=== PATIENT | female | born 1965 | race Caucasian/White ===

== ENCOUNTER 2016-11-28 13:40 | Inpatient (IN) | payer BC ==
[~2016-11-28] VITALS: Ht 165.1 cm; Wt 89.0 kg
[2016-11-28 14:30] LABS: HEMATOCRIT 31.4 % (36.0-46.0); MCH 22.2 PG (29.0-34.0); MCHC 29.9 G/DL (30.0-36.0); MCV 74.2 FL (83-99); MEAN PLAT.VOLUME 10.4 uM^3 (9.5-12.4); PLATELET COUNT 304 K/uL (156-360); RBC DIS.WIDTH-CV 15.6 % (11.8-14.6); RBC DIS.WIDTH-SD 41.8 % (39-53); RED BLOOD COUNT 4.23 M/uL (3.80-5.20); WHITE BLOOD COUNT 5.4 K/uL (4.1-10.2)
[2016-11-28 14:35] LABS: CHLORIDE 105 mEq/L (99-109); POTASSIUM 4.7 mEq/L (3.7-5.4); SODIUM 137 mEq/L (136-147)
[2016-11-28 14:37] LABS: GLUCOSE 81 mg/dL (70-99)
[2016-11-28 14:39] LABS: ANION GAP 8 MEQ/L (2-14)
[2016-11-28 14:41] LABS: GFR ESTIMATE (CALCULATED) > 59 mL/min/
[2016-11-28 14:42] LABS: UREA NITROGEN (BUN) 9 mg/dL (9-23)
[2016-11-28] MEDS ORDERED: LEXAPRO10 MG PO (16:06)
[2016-11-28] MEDS ORDERED: FLEXERIL10 MG PO (16:06)
[2016-11-28] MEDS ORDERED: XANAX0.25 MG PO (16:07)
[2016-11-28] MEDS ORDERED: DAILY VITE1 EAC1 PO (16:08)
[2016-11-28] MEDS ORDERED: CYANOCOBAL1000 MCG/2 IM (16:08)
[2016-11-28] MEDS ORDERED: ADVAIR 250/501 DISK IH (16:09)
[2016-11-28] MEDS ORDERED: VITAMIN D2000 UNI1 PO (16:09)
[2016-11-28] MEDS ORDERED: PROAIR HFA8.5 GM IH (16:09)
[2016-11-28 20:01] VITALS: BP 142/78
[2016-11-28 22:29] LABS: ADD MIUA? YES; BILIRUBIN NEGATIVE; BLOOD NEGATIVE; COLOR STRAW ((YELLOW)); GLUCOSE (STRIP) >=500; KETONES NEGATIVE; LEUKOCYTES SMALL; NITRITE NEGATIVE; PROTEIN (STRIP) NEGATIVE; SPECIFIC GRAVITY 1.009 (1.000-1.030); UROBILINOGEN 0.2 MG/DL (0.2-1.0)
[2016-11-28 22:33] LABS: BACTERIA NONE SEEN /HPF; EPITHELIAL CELLS RARE /HPF; MUCUS TRACE /LPF; RED BLOOD CELLS 0-5 /HPF (0-5); UCUL ADDED? NO; WHITE BLOOD CELLS 0-5 /HPF (0-5)
[2016-11-28 23:43] VITALS: BP 138/70
[2016-11-29 03:38] VITALS: BP 133/71
[2016-11-29 06:17] LABS: EOSINOPHIL (%) 0 % (0-5); HEMATOCRIT 30.4 % (36.0-46.0); IMMATURE GRANULOCYTE (%) 0.5 % (0.0-0.7); LYMPHOCYTE COUNT 0.9 K/uL (1.0-2.8); MCH 23.2 PG (29.0-34.0); MCHC 30.9 G/DL (30.0-36.0); MCV 74.9 FL (83-99); MEAN PLAT.VOLUME 10.9 uM^3 (9.5-12.4); MONOCYTE (%) 5.8 % (3-12); MONOCYTE COUNT 0.4 K/uL (0-0.8); NEUTROPHIL (%) 81.7 % (45-76); PLATELET COUNT 347 K/uL (156-360); RBC DIS.WIDTH-CV 15.7 % (11.8-14.6); RBC DIS.WIDTH-SD 42.5 % (39-53); RED BLOOD COUNT 4.06 M/uL (3.80-5.20); WHITE BLOOD COUNT 7.4 K/uL (4.1-10.2)
[2016-11-29 06:29] LABS: ALKALINE PHOSPHATASE 121 IU/L (3-129); ANION GAP 9 MEQ/L (2-14); CHLORIDE 105 MEQ/L (99-109); GFR ESTIMATE (CALCULATED) > 59 mL/min/; HDL CHOLESTEROL 59 MG/DL (Desirable>=50); LDL CHOLESTEROL 97 mg/dL (Desirable<100); NON-HDL CHOLESTEROL 105 mg/dL (Desirable<160); POTASSIUM 4.7 MEQ/L (3.7-5.4); SAMPLE HEMOLYSIS CHECK 0; SAMPLE ICTERIC CHECK 0; SAMPLE LIPEMIA CHECK 0; SODIUM 139 MEQ/L (136-147); TOTAL BILIRUBIN 0.3 MG/DL (0.0-1.0); TOTAL CHOLESTEROL 164 mg/dL (Desirable<200); TRIGLYCERIDES 41 MG/DL (Normal: <150); UREA NITROGEN (BUN) 11 mg/dL (9-23)
[2016-11-29 06:31] LABS: GLUCOSE 115 mg/dL (70-99)
[2016-11-29 07:03] LABS: Estimated Average Glucose 131 mg/dL (70-123); HEMOGLOBIN A1c (GLYCOHEMOGLOB) 6.2 % HGB (Below 5.7)
[2016-11-29 08:00] VITALS: BP 142/79
[2016-11-29 11:27] VITALS: BP 130/82
[2016-11-29 15:39] VITALS: BP 144/77
[2016-11-29 16:03] VITALS: BP 144/77
[2016-11-29 19:32] VITALS: BP 139/83
[2016-11-30 00:01] VITALS: BP 132/68
[2016-11-30 03:59] VITALS: BP 130/79
[2016-11-30 08:17] VITALS: BP 131/83
[2016-11-30] MEDS ORDERED: PRAVASTATIN SOD40 MG PO (12:06)
[2016-11-30] MEDS ORDERED: PLAVIX75 MG PO (12:06)
[2016-11-30 12:11] VITALS: BP 156/71
== END 2016-11-30 13:16 | disposition home or self-care (01) | DRG 64 ==
LOC: EME 13:40 → EDOF 16:40 → 5SOUTH 19:49
PROVIDERS: Emergency Medicine; Hospitalist
DX: I63.9 Cerebral infarction, unspecified (principal); I82.0 Budd-Chiari syndrome; I10 Essential (primary) hypertension; D64.9 Anemia, unspecified; Z85.528 Personal history of other malignant neoplasm of kidney; Z90.5 Acquired absence of kidney; E66.9 Obesity, unspecified; Z68.32 Body mass index [BMI] 32.0-32.9, adult; Z87.891 Personal history of nicotine dependence; Z88.6 Allergy status to analgesic agent
CPT/HCPCS: 70450; 80048; 80053; 80061; 81003; 83036; 84443; 85025; 85027; 93005; 93880; 94640; 94640 76; 99281; 99285; J1100; J1200; J1650; J2765